=== PATIENT | female | born 1985 | race Caucasian/White ===

== ENCOUNTER 2016-08-20 | Emergency (ER) | payer OTHER | END 2016-08-20 22:23 | disposition home or self-care (01) ==

== ENCOUNTER 2017-09-08 17:50 | Emergency (ER) | payer OTHER ==
[2017-09-08] MEDS ORDERED: MORPHINE 2 MG/ML CARPUJECT IVP STA ×2 (18:03→20:02)
[2017-09-08] MEDS ORDERED: SODIUM CHLORIDE 0.9% 1,000 ML IV ONE (18:03)
--- NOTE | 2017-09-08 18:05 | ED Physician Documentation ---
PD HPI FEMALE - Stated complaint Stated Complaint: ABD PX - History obtained from History obtained from: Patient - History of Present Illness Timing - onset: Other (32-year-old woman with history of [id number]-Lalya, usually with regular menses presents with almost 1 and 1/2 weeks of very painful pelvis with large blood clots. She was seen at [facility], negative and started on control. This was no help so the control was increased to 3 times daily a few days ago, blood work was done showing "mild anemia" in another facility. She is no better and pain is severe. ) Review of Systems Ten Systems: 10 systems reviewed and negative Constitutional: reports: Fatigue. denies: Fever, Chills Cardiac: denies: Chest pain / pressure, Palpitations Respiratory: denies: Dyspnea, Cough GI: reports: Abdominal Pain. denies: Nausea, Vomiting, Diarrhea PD PAST MEDICAL HISTORY - Present Medications Home Medications: Ambulatory Orders Medication Instructions Recorded Confirmed HYDROcod/ACETAM 5/325 [[place] 5/325] 1 - 2 ea PO Q6H PRN #15 tablet 09/08/17 Nitrofurantoin Monohyd/M-Cryst 1 tab PO BID 5 Days capsule 09/08/17 [Macrobid 100 mg Capsule] - Allergies Allergies/Adverse Reactions: Allergies Allergy/AdvReac Type Severity Reaction Status Date / Time Penicillins Allergy Unknown Verified 09/08/17 18:04 - Social History Does the pt smoke?: No Smoking Status: Never smoker - Immunizations Immunizations are current?: Yes Immunizations: TDAP current <10years PD ED PE NORMAL - Vitals Vital signs reviewed: Yes (tachycardic) - General General: Alert and oriented X 3, No acute distress - HEENT HEENT: PERRL, EOMI - Neck Neck: Supple, no meningeal sign, No bony TTP - Cardiac Cardiac: No murmur - Respiratory Respiratory: No respiratory distress, Clear bilaterally - Abdomen Abdomen: Normal bowel sounds, Soft, Non tender - Female Female : [employer] Worker present ([employer]), Other (Prominent cx, with bimanual central TTP but no CMT or adnexal TTP) - Back Back: No CVA TTP, No spinal TTP - Derm Derm: Normal color, Warm and dry, No rash - Extremities Extremities: No deformity, No tenderness to palpate - Neuro Neuro: Alert and oriented X 3 Eye Opening: Spontaneous Motor: Obeys Commands Verbal: Oriented GCS Score: 15 - Psych Psych: Normal mood, Normal affect Results - Vitals Vitals: Vital Signs - 24 hr 09/08/17 09/08/17 09/08/17 17:57 19:56 20:09 Temperature 37.3 C Heart Rate 102 H 78 74 Respiratory 20 16 18 Rate Blood Pressure 144/88 H 119/68 O2 Saturation 100 98 95 Oxygen O2 Source Room air - Labs Labs: Laboratory Tests 09/08/17 09/08/17 09/08/17 18:05 18:05 18:05 WBC 13.4 H RBC 3.27 L Hgb 9.2 L Hct 28.6 L MCV 87.6 MCH 28.1 MCHC 32.1 RDW 14.3 Plt Count 486 H MPV 7.2 L Neut # 11.1 H Lymph # 1.4 L [place] # 0.7 Eos # 0.2 Baso # 0.0 Absolute Nucleated RBC 0.01 Nucleated RBC % 0.1 Sodium 134 L Potassium 3.7 Chloride 102 Carbon Dioxide 24 Anion Gap 8.0 BUN 7 Creatinine 0.5 Estimated GFR (MDRD) 142 Glucose 123 H Calcium 8.8 Total Bilirubin 0.4 AST 31 ALT 45 Alkaline Phosphatase 132 H Total Protein 7.8 Albumin 3.7 Globulin 4.1 Albumin/Globulin Ratio 0.9 L Lipase 21 L Urine Color YELLOW Urine Clarity CLEAR Urine pH 7.0 Ur Specific [place] 1.020 Urine Protein NEGATIVE Urine Glucose (UA) NEGATIVE Urine Ketones NEGATIVE Urine Occult Blood SMALL H Urine Nitrite POSITIVE H Urine Bilirubin NEGATIVE Urine Urobilinogen 2 H Ur Leukocyte Esterase NEGATIVE Urine RBC 11-25 H Urine WBC 6-10 H Ur Epithelial Cells See Comments Below Ur Squamous Epith Cells FEW Squamous Urine Bacteria Many H Ur Microscopic Review INDICATED Urine Culture Comments INDICATED Urine HCG, Qual NEGATIVE Blood Type Antibody Screen 09/08/17 18:13 WBC RBC Hgb Hct MCV MCH MCHC RDW Plt Count MPV Neut # Lymph # [place] # Eos # Baso # Absolute Nucleated RBC Nucleated RBC % Sodium Potassium Chloride Carbon Dioxide Anion Gap BUN Creatinine Estimated GFR (MDRD) Glucose Calcium Total Bilirubin AST ALT Alkaline Phosphatase Total Protein Albumin Globulin Albumin/Globulin Ratio Lipase Urine Color Urine Clarity Urine pH Ur Specific [place] Urine Protein Urine Glucose (UA) Urine Ketones Urine Occult Blood Urine Nitrite Urine Bilirubin Urine Urobilinogen Ur Leukocyte Esterase Urine RBC Urine WBC Ur Epithelial Cells Ur Squamous Epith Cells Urine Bacteria Ur Microscopic Review Urine Culture Comments Urine HCG, Qual Blood Type B POSITIVE Antibody Screen NEGATIVE - Rads (name of study) Pelvic sono Radiology: EMP read contemporaneously (10.4 cm intramural uterine anterior fibroid. Normal ovaries. Possible dilated fallopian tube on ultrasound.) PD MEDICAL DECISION MAKING - ED course ED course: 32-year-old woman presents with heavy vaginal bleeding and cramping. Found to have a fibroid uterus. She was administered IV Premarin here. She is already taking 3 times daily control. She has an appointment with her plan rep soon and she is given a copy of the ultrasound to aid in follow-up. Departure - Departure Disposition: Home, Self Care Clinical Impression: Vaginal bleeding, Cystitis Fibroid Qualifiers: Uterine leiomyoma location: intramural Qualified Code(s): D25.1 - Intramural leiomyoma of uterus Anemia Qualifiers: Anemia type: iron deficiency Iron deficiency anemia type: chronic blood loss Qualified Code(s): D50.0 - Iron deficiency anemia secondary to blood loss ( chronic) Condition: Good Record reviewed to determine appropriate education?: Yes Instructions: ED Fibroids Prescriptions: HYDROcod/ACETAM 5/325 [[place] 5/325] 1 - 2 ea PO Q6H PRN #15 tablet PRN Reason: Pain Nitrofurantoin Monohyd/M-Cryst [Macrobid 100 mg Capsule] 1 tab PO BID 5 Days capsule Comments: Continue the control tablets, 3 times a day. Return if worse. Follow-up with your plan rep as scheduled with a copy of the ultrasound. Let her know that your hemoglobin today was 9.2. We will culture your urine, the results should be done in 48-72 hours. If an antibiotic change is necessary we will call you. Return if worse in the meantime, especially if you develop increasing flank pain, fevers, or cannot keep down the medication.
[2017-09-08 18:23] LABS: BASOPHILS % (AUTO) 0.2 %; EOSINOPHILS # (AUTO) 0.2 10^3/uL (0.0-0.7); EOSINOPHILS % (AUTO) 1.2 %; HGB - HEMOGLOBIN 9.2 g/dL (12.0-16.0); LYMPHOCYTES # (AUTO) 1.4 10^3/uL (1.5-3.5); LYMPHOCYTES % (AUTO) 10.7 %; MEAN CORPUSCULAR HEMOGLOBIN 28.1 pg (27.0-31.0); MEAN CORPUSCULAR HGB CONC 32.1 g/dL (32.0-36.0); MEAN CORPUSCULAR VOLUME 87.6 fL (81.0-99.0); MEAN PLATELET VOLUME 7.2 fL (7.9-10.8); MONOCYTES # (AUTO) 0.7 10^3/uL (0.0-1.0); MONOCYTES % (AUTO) 5.2 %; NEUTROPHILS # (AUTO) 11.1 10^3/uL (1.5-6.6); NEUTROPHILS % (AUTO) 82.7 %; PLT - PLATELET COUNT 486 10^3/uL (130-450); RED BLOOD COUNT 3.27 10^6/uL (4.20-5.40); RED CELL DISTRIBUTION WIDTH 14.3 % (12.0-15.0); WHITE BLOOD COUNT 13.4 x10^3/uL (4.8-10.8)
[2017-09-08 18:24] LABS: BILIRUBIN,URINE NEGATIVE (NEGATIVE); GLUCOSE, URINE (UA) NEGATIVE (NEGATIVE); KETONES,URINE (UA) NEGATIVE (NEGATIVE); LEUKOCYTE ESTERASE, URINE NEGATIVE (NEGATIVE); NITRITE,URINE POSITIVE (NEGATIVE); OCCULT BLOOD,URINE SMALL (NEGATIVE); PROTEIN,URINE NEGATIVE (NEGATIVE); UROBILINOGEN,URINE 2 E.U./dL (NORMAL)
[2017-09-08 18:26] LABS: CLARITY,URINE CLEAR (CLEAR); HCG UR QUAL NEGATIVE
[2017-09-08 18:36] LABS: ALBUMIN 3.7 g/dL (3.2-5.5); ALBUMIN/GLOBULIN RATIO 0.9 (1.0-2.2); BILIRUBIN,TOTAL 0.4 mg/dL (0.2-1.0); CALCIUM 8.8 mg/dL (8.5-10.3); CREATININE 0.5 mg/dL (0.4-1.0); TOTAL PROTEIN 7.8 g/dL (6.7-8.2)
[2017-09-08 18:38] LABS: BACTERIA,URINE Many /HPF (None Seen); EPITHELIAL CELLS,UR See Comments Below /HPF (<= Few); SQUAMOUS EPITHELIAL CELL,UR FEW Squamous (<= Few)
--- NOTE | 2017-09-08 20:19 | Ultrasound Report ---
EXAM: PELVIC ULTRASOUND EXAM DATE: 09/08/2017 08:02 PM. CLINICAL HISTORY: Pelvic pain and bleeding. COMPARISON: None. TECHNIQUE: Realtime transabdominal pelvic scan performed to identify the uterus and adnexa and as an overview of other pelvic structures, followed by transvaginal scan to provide greater detail of the u terus and adnexa, with static image documentation. FINDINGS: Uterus: 9.3 x 4.9 x 5.7 cm, volume 134.6 cc. Anteverted position. Normal overall size and echotexture . Masses: 2.4 x 1.5 x 3 cm anterior mural fibroid noted. Endometrium: 6 mm. Normal. Cervix: Unremarkable. Right Ovary: 4.1 x 2.4 x 1.7 cm, volume 8.7 cc. Normal echotexture and blood flow. Additional tubular structure next to the ovary with internal low-level echogenicity may represent a dilated fallopian t ube and possibly with internal proteinaceous or hemorrhagic content.. Left Ovary: 2.5 x 2.1 x 2.7 cm, volume 7.4 cc. Normal echotexture and blood flow. Free Fluid: None. Other: None. IMPRESSION: 1. Endometrium is unremarkable measuring 6 mm in caliber. No masses. 2. 2.4 cm intramural uterine anterior fibroid. 3. Bilateral ovaries appear unremarkable. 4. Tubular structure apparently adjacent to the right ovary may represent a dilated fallopian tube wi th low-level internal echogenicity that could represent internal proteinaceous or hemorrhagic content . [facility] Referring Provider Line: [phone] SITE ID: [id number]
[2017-09-08] MEDS ORDERED: HYDROcod/ACET 5/325 Prepack 6 PO STA (20:47)
[2017-09-08] MEDS ORDERED: NITROFURANTOIN MACRO 100 MG CAPSULE PO STA (20:47)
[2017-09-08] MEDS ORDERED: ESTROGENS, CONJUGATED 25 MG VIAL IVP STA (20:47)
[2017-09-08] MEDS ORDERED: WATER FOR INJECTION,STERILE 10 ML ONE (21:03)
[2017-09-08 21:09] VITALS: BP 119/76
== END 2017-09-08 21:18 | disposition home or self-care (01) ==
LOC: ED 17:50
DX: N93.9 Abnormal uterine and vaginal bleeding, unspecified (principal); N30.90 Cystitis, unspecified without hematuria; D25.1 Intramural leiomyoma of uterus; D50.0 Iron deficiency anemia secondary to blood loss (chronic); G60.0 Hereditary motor and sensory neuropathy
CPT/HCPCS: 36415; 76830; 76856; 80053; 81001; 81025; 83690; 85025; 86850; 86900; 86901; 87086; 87181; 87491; 87591; 93975; 96374; 96375; 96376; 99284; A9270; 81003

== ENCOUNTER 2018-05-23 12:57 | Emergency (ER) | payer OTHER ==
[2018-05-23 13:58] LABS: BILIRUBIN,URINE NEGATIVE (NEGATIVE); GLUCOSE, URINE (UA) NEGATIVE (NEGATIVE); KETONES,URINE (UA) TRACE mg/dL (NEGATIVE); LEUKOCYTE ESTERASE, URINE MODERATE (NEGATIVE); NITRITE,URINE POSITIVE (NEGATIVE); OCCULT BLOOD,URINE MODERATE (NEGATIVE); PROTEIN,URINE 100 mg/dL (NEGATIVE); UROBILINOGEN,URINE 0.2 (NORMAL) E.U./dL (NORMAL)
[2018-05-23 14:06] LABS: CLARITY,URINE CLOUDY (CLEAR); HCG UR QUAL NEGATIVE
[2018-05-23 14:13] LABS: BACTERIA,URINE Few /HPF (None Seen); RBC,URINE 0-5 /HPF (0-5); SQUAMOUS EPITHELIAL CELL,UR FEW Squamous (<= Few)
--- NOTE | 2018-05-23 14:23 | ED Physician Documentation ---
PD HPI URI - Stated complaint Stated Complaint: FEVER/CHILLS/ACHES - Chief complaint Chief Complaint: General - History obtained from History obtained from: Patient - History of Present Illness Timing - onset: How many days ago (2-3) Timing duration: Days (2-3) Timing details: Gradual onset, Still present Associated symptoms: Fever, Chills, Other (dysuria and bilateral flank pain). No: Sore throat, Dry cough, Dyspnea, NVD Contributing factors: No: Sick contact, Travel, Immunocompromised Improves by: No: Rest Worsened by: No: Activity Similar symptoms before: Has not had sx before Recently seen: Not recently seen Review of Systems Constitutional: reports: Fever, Chills, Myalgias Nose: denies: Rhinorrhea / runny nose, Congestion Throat: denies: Sore throat Cardiac: denies: Chest pain / pressure Respiratory: denies: Cough GI: reports: Abdominal Pain (lower abd), Nausea. denies: Vomiting, Constipation, Diarrhea : reports: Frequency. denies: Hematuria, Discharge Skin: denies: Rash, Lesions Musculoskeletal: reports: Back pain (flank both sides). denies: Neck pain Neurologic: reports: Generalized weakness PD PAST MEDICAL HISTORY - Past Medical History Cardiovascular: None Respiratory: None Neuro: None Endocrine/Autoimmune: None - Present Medications Home Medications: Ambulatory Orders Medication Instructions Recorded Confirmed HYDROcod/ACETAM 5/325 [[place] 5/325] 1 - 2 ea PO Q6H PRN #15 tablet 09/08/17 Nitrofurantoin Monohyd/M-Cryst 1 tab PO BID 5 Days capsule 09/08/17 [Macrobid 100 mg Capsule] Hydrocodone/Acetaminophen [[place] 1 each PO Q6H PRN #12 tablet 05/23/18 5-325 Tablet] Naproxen 375 mg PO BID #20 tablet 05/23/18 Ondansetron Odt [Zofran] 4 mg TL Q6H PRN #10 tablet 05/23/18 Sulfamethox/Trimeth 800/160 1 each PO BID #14 tablet 05/23/18 [Bactrim Ds 800/160] - Allergies Allergies/Adverse Reactions: Allergies Allergy/AdvReac Type Severity Reaction Status Date / Time Penicillins Allergy Unknown Verified 09/08/17 18:04 - Social History Does the pt smoke?: No Smoking Status: Never smoker - Immunizations Immunizations are current?: Yes Immunizations: TDAP current <10years PD ED PE NORMAL - Vitals Vital signs reviewed: Yes - General General: Alert and oriented X 3, No acute distress, Well developed/nourished - HEENT HEENT: Pharynx benign - Neck Neck: Supple, no meningeal sign, No adenopathy - Cardiac Cardiac: RRR, No murmur - Respiratory Respiratory: Clear bilaterally - Abdomen Abdomen: Normal bowel sounds, Soft, Non distended, No organomegaly, Other (mild suprapubic tenderness without guarding. ) - Female Female : Deferred - Back Back: Other (mild CVA tenderness both sides) - Derm Derm: Normal color, Warm and dry Results - Vitals Vitals: Oxygen O2 Source Room air - Labs Labs: Microbiology 05/23/18 13:20 Urine Culture - Preliminary Urine,Clean Catch Escherichia Coli Laboratory Tests 05/23/18 13:20 Urine Color DARK YELLOW Urine Clarity CLOUDY Urine pH 6.0 Ur Specific [place] >=1.030 H Urine Protein 100 H Urine Glucose (UA) NEGATIVE Urine Ketones TRACE Urine Occult Blood MODERATE H Urine Nitrite POSITIVE H Urine Bilirubin NEGATIVE Urine Urobilinogen 0.2 (NORMAL) Ur Leukocyte Esterase MODERATE H Urine RBC 0-5 Urine WBC >25 H Ur Squamous Epith Cells FEW Squamous Urine Bacteria Few Ur Microscopic Review INDICATED Urine Culture Comments INDICATED Urine HCG, Qual NEGATIVE PD MEDICAL DECISION MAKING - ED course Complexity details: reviewed results, considered differential, d/w patient Departure - Departure Disposition: 01 Home, Self Care Clinical Impression: UTI (urinary tract infection) Qualifiers: Urinary tract infection type: acute pyelonephritis Qualified Code(s): N10 - Acute pyelonephritis Condition: Stable Record reviewed to determine appropriate education?: Yes Instructions: ED UTI Cystitis Female Follow-Up: SOCORRO NIEVES [Primary Care Provider] - Prescriptions: Hydrocodone/Acetaminophen [[place] 5-325 Tablet] 1 each PO Q6H PRN #12 tablet PRN Reason: Pain Naproxen 375 mg PO BID #20 tablet Ondansetron Odt [Zofran] 4 mg TL Q6H PRN #10 tablet PRN Reason: Nausea / Vomiting Sulfamethox/Trimeth 800/160 [Bactrim Ds 800/160] 1 each PO BID #14 tablet Comments: Your urine test and symptoms are consistent with a bladder and kidney infection. Drink lots of fluids. Ondansetron if needed for nausea. Naproxen twice daily for pain and inflammation. Add hydrocodone if needed for pain. This should be short-term with improvement in symptoms over the next couple of days with the Bactrim antibiotic twice daily. Recheck if not improving over the next day or 2. Discharge Date/Time: 05/23/18 15:07
[2018-05-23] MEDS ORDERED: NAPROXEN 250 MG TABLET PO STA (14:40)
[2018-05-23] MEDS ORDERED: SULFAMETH/TRIMETH DS 800/160 MG TABLET PO STA (14:40)
[2018-05-23] MEDS ORDERED: ONDANSETRON ODT 4 MG TABLET TL STA (14:40)
[2018-05-23] MEDS ORDERED: HYDROcod/ACETAM 5/325 MG TABLET PO STA (14:40)
[2018-05-23 15:08] VITALS: BP 121/71
== END 2018-05-23 15:07 | disposition home or self-care (01) ==
LOC: ED 12:57
DX: N10 Acute pyelonephritis (principal)
CPT/HCPCS: 81001; 81025; 87086; 87181; 99283; A9270; Q0162; 81003